=== PATIENT | female | born 1990 | race Caucasian/White ===

== ENCOUNTER 2016-09-06 10:04 | Observation (INO) | payer OTHER ==
[~2016-09-06 10:04] MED LIST: PREN1CAP30 PO; PREN29TA PO; PROM1SUP7 RECTAL; PROM25TA5 PO
[2016-09-06 11:25] LABS: BACTERIA, URINE RARE /hpf; BLOOD, URINE NEG (NEG); COMMENT (UR) CULT NOT INDICATED; CULTURE IF INDICATED CULT NOT INDICATED; GLUCOSE,URINE NEG (NEG); KETONE, URINE 150 mg/dL (NEG); MUCUS URINE FEW /lpf (OCC); NITRITE,URINE NEG (NEG); SQUAMOUS EPITHELIAL CELL URINE <1 /hpf (0-5); URINE COLOR YELLOW (YELLW/STRAW)
[2016-09-06] MEDS: LACTATED RINGER'S 1000 ML INJ 1,000 ML IV SCH ×2 (11:30→19:30)
[2016-09-06] MEDS ORDERED: PROCHLORPERAZINE INJ 10 MG/2 ML VIAL IM ONE (11:45)
[2016-09-06] MEDS ORDERED: ONDANSETRON HCL 4 MG/2 ML VIAL IV PUSH ONE (11:45)
[2016-09-06 12:21] LABS: HEMATOCRIT 39.7 % (35.0-46.0); MEAN CELL VOLUME 91.9 FL (80.0-100.0); MEAN CORPUSCULAR HEMOGLOBIN 31.9 PG (27.0-34.0); MEAN CORPUSCULAR HGB CONC 34.7 % (32.0-36.0); PLATELET COUNT 365 TH/MM3 (150-450); RED BLOOD COUNT 4.32 MIL/MM3 (4.00-5.30); REVIEW FLAG FINAL; WHITE BLOOD COUNT 13.3 TH/MM3 (4.0-11.0)
[2016-09-06 13:07] LABS: ALKALINE PHOSPHATASE 48 U/L (45-117); ALT (GPT) 28 U/L (10-53); ANION GAP 17 MEQ/L (5-15); AST (GOT) 14 U/L (15-37); BICARBONATE 19.2 MEQ/L (21.0-32.0); BLOOD UREA NITROGEN 5 MG/DL (7-18); CHLORIDE 96 MEQ/L (98-107); GLOMERULAR FILTRATION RATE 229 ML/MIN (>89); SODIUM (NA) 132 MEQ/L (136-145); TOTAL BILIRUBIN ADULT 1.8 MG/DL (0.2-1.0)
[2016-09-06 13:12] LABS: POTASSIUM 2.7 MEQ/L (3.5-5.1)
[2016-09-06] MEDS ORDERED: SODIUM CHLORIDE 0.9% FLUSH 5 ML FLUSH IVF PRN (13:30)
[2016-09-06] MEDS: NS + KCL 20 MEQ INJ 1,000 ML IV SCH ×2 (13:30→22:26)
--- NOTE | 2016-09-06 13:32 | HHI.HP ---
HPI Chief Complaint Nausea and vomiting abdominal pain, denies bleeding or ruptured membranes, Date Seen: Sep 06, 2016 Travel History International Travel<30 Days: No Contact w/Intl Traveler<30Days: No History of Present Illness HPI Patient is 27 week intrauterine followed [facility] has battled nausea and vomiting hyperemesis throughout her . He has been up here 4 times for nausea and vomiting each time receiving fluids and medications going home and continuing to vomit. She states that she's been unable to keep anything down today. She notes the baby is moving her heart rate tracing is reactive. No contractions. Para: 0 : 1 History Past Medical History Narrative Medical The patient has had hyperemesis gravidarum Social History Alcohol Use: No Tobacco Use: Yes Substance Abuse: No Allergies-Medications (Allergen,Severity, Reaction): Coded Allergies: No Known Allergies (Verified , 09/02/16) Home Meds Active Scripts Promethazine Supp (Phenergan Supp)25 Mg Supp25 Mg RECTAL Q6H PRN (NAUSEA OR VOMITING) #6 SUPP Ref 0 Prov:Wally Padilla II, MD 08/31/16 Promethazine (Phenergan)25 Mg Tab25 Mg PO Q6H PRN (Nausea/Vomiting) #30 TAB Ref 0 Prov:Wally Padilla II, MD 08/31/16 Without A W/Fe Fum-Fe (Provida Dha 16-16-1.25-110 mg)1 Cap Cap1 Tab PO DAILY #30 BOTTLE Ref 11 Prov:Steffanie Barnett 07/22/16 Reported Medications Vit-Iron Carbonyl ( Plus Iron 29-1 mg)1 Tab Tab1 Tab PO DAILY #30 TAB Ref 0 08/31/16 Review of Systems Gastrointestinal: Nausea, Vomiting, Abdominal Pain Neurologic: Weakness Physical Exam Narrative GENERAL: Well-nourished, well-developed patient. SKIN: Warm and dry. HEAD: Normocephalic and atraumatic. EYES: No scleral icterus. No injection or drainage. ENT: No nasal drainage noted. Mucous membranes pink. Airway patent. NECK: Supple, trachea midline. No JVD. CARDIOVASCULAR: Regular rate and rhythm without murmurs, gallops, or rubs. RESPIRATORY: Breath sounds equal bilaterally. No accessory muscle use. BREASTS: Bilateral exam showed no masses , no retractions, no nipple discharge. ABDOMEN/GI: Abdomen soft, non-tender, bowel sounds present, no rebound, no guarding Gravid to [28 wk-] weeks size Fundal Height: [26 cm-] GENITOURINARY: External Genitalia: intact and normal in appearance BUS glands: [-] Cervix- posterior] Dilatation: [Post-] Effacement: [-] Thick Station: [-High] Presentation: [-] Membranes: [intact ] Uterine Contractions: [none-] FHT's: Category: [-1] Baseline: [-133] Reactive: [yes-] Variability: [-] Decels: [none-] EXTREMITIES: No cyanosis or edema. BACK: Nontender without obvious deformity. No CVA tenderness. NEUROLOGICAL: Awake and alert. Motor and sensory grossly within normal limits. Five out of 5 muscle strength in all muscle groups. Normal speech. Data Data Orders Urinalysis - C+S If Indicated (09/06/16 11:08) Vital Signs (Adult) .ON ADMISSION (09/06/16 11:30) ^ Labor Status (09/06/16 11:30) Cbc No Diff, Includes Plts (09/06/16 11:30) Comprehensive Metabolic Panel (09/06/16 11:30) Lactated Ringer's 1000 Ml Inj (Lr 1000 M (09/06/16 11:30) Ondansetron Inj (Zofran Inj) (09/06/16 11:45) Prochlorperazine Inj (Compazine Inj) (09/06/16 11:45) Fentanyl Inj (Fentanyl Inj) (09/06/16 11:45) Place In Observation (09/06/16 ) Diet Npo (09/06/16 Lunch) Vital Signs (Adult) SAGAR.N0J-ESAFP AWAKE (09/06/16 13:16) ^ Heart SAGAR.QSHIFT (09/06/16 13:16) Activity Bed Rest With Brp (09/06/16 13:16) Sodium Chloride 0.9% Flush (Ns Flush) (09/06/16 21:00) Sodium Chloride 0.9% Flush (Ns Flush) (09/06/16 13:30) Ns + Kcl 20 Meq Inj (Ns + Kcl 20 Meq Inj (09/06/16 13:30) Ondansetron Inj (Zofran Inj) (09/06/16 18:00) Metoclopramide Inj (Reglan Inj) (09/06/16 13:30) Potassium Chloride (Kcl) (09/06/16 21:00) Ob (2e) Additional Admit Info (09/06/16 13:25) Labs Laboratory Tests Test 09/06/16 11:05 White Blood Count 13.3 Red Blood Count 4.32 Hemoglobin 13.8 Hematocrit 39.7 Mean Corpuscular Volume 91.9 Mean Corpuscular Hemoglobin 31.9 Mean Corpuscular Hemoglobin 34.7 Concent Red Cell Distribution Width 13.0 Platelet Count 365 Mean Platelet Volume 7.9 Urine Color YELLOW Urine Turbidity CLEAR Urine pH 6.0 Urine Specific [place] 1.027 Urine Protein 30 Urine Glucose (UA) NEG Urine Ketones 150 Urine Occult Blood NEG Urine Nitrite NEG Urine Bilirubin NEG Urine Urobilinogen 2.0 Urine Leukocyte Esterase TRACE Urine RBC 1 Urine WBC 3 Urine Squamous Epithelial <1 Cells Urine Bacteria RARE Urine Mucus FEW Microscopic Urinalysis Comment CULT NOT INDICATED Sodium Level 132 Potassium Level 2.7 Chloride Level 96 Carbon Dioxide Level 19.2 Anion Gap 17 Blood Urea Nitrogen 5 Creatinine 0.35 Estimat Glomerular Filtration 229 Rate Random Glucose 84 Calcium Level 9.1 Total Bilirubin 1.8 Aspartate Amino Transf 14 (AST/SGOT) Alanine Aminotransferase 28 (ALT/SGPT) Alkaline Phosphatase 48 Total Protein 7.4 Albumin 3.6 Assessment/Plan Assessment and Plan Mckenzie is a 26-year-old white female at 27 weeks gestation followed by [facility] subjective this presents with her persistent nausea vomiting unrelieved by outpatient management. The patient requests being admitted for further IV fluid medication and pain relief. Her on OB ED she is already received a liter fluid IV Zofran and Compazine and fentanyl however she still feels nauseous but has not thrown up on she's here her laboratory shows a low potassium at 2.7 low sodium 132. Plan to admit to observation for further IV fluid antibiotics and potassium replacement for hypokalemia. The baby of the discharge in the morning on oral antiemetics and KCL Wally Padilla II, MD Sep 06, 2016 13:32
[2016-09-06] MEDS ORDERED: MORPHINE SULFATE 4 MG/ML INJ IV PUSH PRN (13:45)
[2016-09-06] MEDS: METOCLOPRAMIDE HCL 10 MG/2 ML VIAL IM SCH ×2 (14:00→22:25)
[2016-09-06] MEDS ORDERED: PANTOPRAZOLE SODIUM 40 MG VIAL IV PUSH SCH (14:00)
[2016-09-06 15:12] LABS: AMPHETAMINE, URINE NEG (NEG); BARBITURATES, URINE NEG (NEG); COCAINE, URINE NEG (NEG)
[2016-09-06] MEDS: ONDANSETRON HCL 4 MG/2 ML VIAL IV PUSH SCH (18:00)
[2016-09-06] MEDS: POTASSIUM CHLORIDE 10 MEQ CONTROLLED RELEASE TAB PO SCH (21:26)
[2016-09-06] MEDS: SODIUM CHLORIDE 0.9% FLUSH 5 ML FLUSH IVF SCH (22:16)
[2016-09-07] MEDS: ONDANSETRON HCL 4 MG/2 ML VIAL IV PUSH SCH ×2 (00:15→06:03)
[2016-09-07] MEDS: LACTATED RINGER'S 1000 ML INJ 1,000 ML IV SCH (03:30)
[2016-09-07] MEDS: NS + KCL 20 MEQ INJ 1,000 ML IV SCH (06:02)
[2016-09-07] MEDS: METOCLOPRAMIDE HCL 10 MG/2 ML VIAL IM SCH (06:02)
--- NOTE | 2016-09-07 07:32 | PD.OB.ANTE ---
Subjective Diagnosis: (1) related nausea and vomiting, antepartum Diagnosis: Principal (2) 27 weeks gestation of Diagnosis: Principal Interval History No acute events overnight. Patient is AFVSS. Patient says she hasn't had any vomiting since admission, and "is feeling much better." She endorses nausea but states it is under control with antiemetics given in hospital. She denies vomiting, diarrhea, constipation, shortness of breath, abdominal pain, chest pain. No vaginal bleeding, contractions, leakage of fluid. Patient endorses that she plans to completely stop using marijuana (UDS positive for marijuana). Antepartum ROS: Reports: movement normal, Denies: New complaints, Loss of fluid, Vaginal bleeding, Contractions Objective Vital Signs Most recent vitals: 99.0F, pulse 78, respirations 16/min, BP 103/48. Lab & Micro Results Test 09/06/16 11:05 White Blood Count 13.3 TH/MM3 Red Blood Count 4.32 MIL/MM3 Hemoglobin 13.8 GM/DL Hematocrit 39.7 % Mean Corpuscular Volume 91.9 FL Mean Corpuscular Hemoglobin 31.9 PG Mean Corpuscular Hemoglobin 34.7 % Concent Red Cell Distribution Width 13.0 % Platelet Count 365 TH/MM3 Mean Platelet Volume 7.9 FL Urine Color YELLOW Urine Turbidity CLEAR Urine pH 6.0 Urine Specific [place] 1.027 Urine Protein 30 mg/dL Urine Glucose (UA) NEG mg/dL Urine Ketones 150 mg/dL Urine Occult Blood NEG Urine Nitrite NEG Urine Bilirubin NEG Urine Urobilinogen 2.0 MG/DL Urine Leukocyte Esterase TRACE Urine RBC 1 /hpf Urine WBC 3 /hpf Urine Squamous Epithelial <1 /hpf Cells Urine Bacteria RARE /hpf Urine Mucus FEW /lpf Microscopic Urinalysis Comment CULT NOT INDICATED Sodium Level 132 MEQ/L Potassium Level 2.7 MEQ/L Chloride Level 96 MEQ/L Carbon Dioxide Level 19.2 MEQ/L Anion Gap 17 MEQ/L Blood Urea Nitrogen 5 MG/DL Creatinine 0.35 MG/DL Estimat Glomerular Filtration 229 ML/MIN Rate Random Glucose 84 MG/DL Calcium Level 9.1 MG/DL Total Bilirubin 1.8 MG/DL Aspartate Amino Transf 14 U/L (AST/SGOT) Alanine Aminotransferase 28 U/L (ALT/SGPT) Alkaline Phosphatase 48 U/L Total Protein 7.4 GM/DL Albumin 3.6 GM/DL Urine Opiates Screen NEG Urine Barbiturates Screen NEG Urine Amphetamines Screen NEG Urine Benzodiazepines Screen NEG Urine Cocaine Screen NEG Urine Cannabinoids Screen POS Physical Exam GENERAL: Well-nourished, well-developed female sitting in bed in NAD. CARDIOVASCULAR: Regular rate and rhythm without murmurs, gallops, or rubs. RESPIRATORY: Breath sounds equal bilaterally. No accessory muscle use. ABDOMEN/GI: Abdomen soft, non-tender. Gravid to approximately 24 weeks. GENITOURINARY: deferred FHT's: Category: 1 Baseline: 150 Reactive: n Variability: mod Decels: none EXTREMITIES: No cyanosis or edema, non-tender, without signs of DVT. Assessment and Plan Problem List: (1) related nausea and vomiting, antepartum Status: Acute (2) 27 weeks gestation of Status: Acute Assessment and Plan 26-year-old female at 27 and 3/7 weeks gestation followed by [facility] who presents to the OB ED with intractable nausea and vomiting. She she was found to have significant hypokalemia documented at 2.7. She is status post PO repletion and IV fluid repletion of potassium, with CMP pending for this morning. For the nausea, patient has received Zofran and Reglan which has significantly improved her symptoms. Plan: -Monitor CMP this morning, replete K PO as needed -Discharge home with Reglan 10mg q8hr scheduled, Zofran 4mg q6hr PRN to control nausea symptoms -Continue routine care with [facility], with close follow-up to monitor symptoms and growth DW Dr. Wally Padilla MD and Dr. Healy, PGY2 Rosie Soler MD R1 Sep 07, 2016 07:32
[2016-09-07] MEDS ORDERED: ZOFR4TAB3 SL (08:06)
[2016-09-07] MEDS ORDERED: REGL10TA5 PO (08:06)
--- NOTE | 2016-09-07 08:07 | HHI.DCPOC ---
Discharge Care Plan Diagnosis: (1) related nausea and vomiting, antepartum (2) 27 weeks gestation of Your Health Problems Are: Nausea and/or vomiting Report Symptoms to Your Doctor -Temperate above 100.5 degrees -Redness, of incision or excessive or foul smelling drainage -Unusual pain or calf pain -Increased vaginal bleeding -Painful or difficulty urinating -Feelings of extreme sadness or anxiety after 2 weeks Goals to Promote Your Health * To prevent worsening of your condition and complications * To maintain your health at the optimal level Directions to Meet Your Goals Take your medications as prescribed Follow your dietary instruction Follow activity as directed Ensure plenty of rest for recovery Drink fluids for hydration Keep your appointments as scheduled Take your immunizations and boosters as scheduled If your symptoms worsen call your PCP, if no PCP go to Urgent Care Center or Emergency Room Smoking is Dangerous to Your Health. Avoid second hand smoke Call the 24-hour crisis hotline for domestic abuse at Rosie Soler MD R1 Sep 07, 2016 08:07
[2016-09-07] MEDS: POTASSIUM CHLORIDE 10 MEQ CONTROLLED RELEASE TAB PO SCH (08:28)
[2016-09-07] MEDS ORDERED: PROT40TA PO (08:47)
[2016-09-07] MEDS: SODIUM CHLORIDE 0.9% FLUSH 5 ML FLUSH IVF SCH (09:00)
[2016-09-07 09:27] LABS: ALKALINE PHOSPHATASE 40 U/L (45-117); ALT (GPT) 26 U/L (10-53); ANION GAP 12 MEQ/L (5-15); AST (GOT) 19 U/L (15-37); BICARBONATE 17.1 MEQ/L (21.0-32.0); CHLORIDE 107 MEQ/L (98-107); GLOMERULAR FILTRATION RATE 273 ML/MIN (>89); POTASSIUM 3.9 MEQ/L (3.5-5.1); SODIUM (NA) 136 MEQ/L (136-145); TOTAL BILIRUBIN ADULT 1.9 MG/DL (0.2-1.0)
[2016-09-07 09:28] LABS: BLOOD UREA NITROGEN 3 MG/DL (7-18)
--- NOTE | 2016-09-07 09:33 | PD.OB.ANTE ---
Subjective Diagnosis: (1) related nausea and vomiting, antepartum (2) 27 weeks gestation of Interval History pt feeling better today , K -3.9 , no N/V since admission , will D/C on po reglan, zofran ODT , protonix q d Objective Lab & Micro Results Test 09/06/16 09/07/16 11:05 08:00 White Blood Count 13.3 TH/MM3 Red Blood Count 4.32 MIL/MM3 Hemoglobin 13.8 GM/DL Hematocrit 39.7 % Mean Corpuscular Volume 91.9 FL Mean Corpuscular Hemoglobin 31.9 PG Mean Corpuscular Hemoglobin 34.7 % Concent Red Cell Distribution Width 13.0 % Platelet Count 365 TH/MM3 Mean Platelet Volume 7.9 FL Urine Color YELLOW Urine Turbidity CLEAR Urine pH 6.0 Urine Specific [place] 1.027 Urine Protein 30 mg/dL Urine Glucose (UA) NEG mg/dL Urine Ketones 150 mg/dL Urine Occult Blood NEG Urine Nitrite NEG Urine Bilirubin NEG Urine Urobilinogen 2.0 MG/DL Urine Leukocyte Esterase TRACE Urine RBC 1 /hpf Urine WBC 3 /hpf Urine Squamous Epithelial <1 /hpf Cells Urine Bacteria RARE /hpf Urine Mucus FEW /lpf Microscopic Urinalysis Comment CULT NOT INDICATED Sodium Level 132 MEQ/L 136 MEQ/L Potassium Level 2.7 MEQ/L 3.9 MEQ/L Chloride Level 96 MEQ/L 107 MEQ/L Carbon Dioxide Level 19.2 MEQ/L 17.1 MEQ/L Anion Gap 17 MEQ/L 12 MEQ/L Blood Urea Nitrogen 5 MG/DL 3 MG/DL Creatinine 0.35 MG/DL 0.30 MG/DL Estimat Glomerular Filtration 229 ML/MIN 273 ML/MIN Rate Random Glucose 84 MG/DL 71 MG/DL Calcium Level 9.1 MG/DL 8.1 MG/DL Total Bilirubin 1.8 MG/DL 1.9 MG/DL Aspartate Amino Transf 14 U/L 19 U/L (AST/SGOT) Alanine Aminotransferase 28 U/L 26 U/L (ALT/SGPT) Alkaline Phosphatase 48 U/L 40 U/L Total Protein 7.4 GM/DL 5.8 GM/DL Albumin 3.6 GM/DL 2.9 GM/DL Urine Opiates Screen NEG Urine Barbiturates Screen NEG Urine Amphetamines Screen NEG Urine Benzodiazepines Screen NEG Urine Cocaine Screen NEG Urine Cannabinoids Screen POS Physical Exam GENERAL: Well-nourished, well-developed patient. CARDIOVASCULAR: Regular rate and rhythm without murmurs, gallops, or rubs. RESPIRATORY: Breath sounds equal bilaterally. No accessory muscle use. ABDOMEN/GI: Abdomen soft, non-tender. Fundus: [-] GENITOURINARY: External Genitalia: intact and normal in appearance Cervix: [-] Dilatation: [-] Effacement: [-] Station: [-] Presentation: [-] Membranes: [-] Uterine Contractions: [-] FHT's: Category: [-] Baseline: [-] Reactive: [-] Variability: [-] Decels: [-] EXTREMITIES: No cyanosis or edema, non-tender, without signs of DVT. Assessment and Plan Problem List: (1) related nausea and vomiting, antepartum Status: Acute (2) 27 weeks gestation of Status: Acute Assessment and Plan 26-year-old female at 27 and 3/7 weeks gestation followed by [facility] who presents to the OB ED with intractable nausea and vomiting. She she was found to have significant hypokalemia documented at 2.7. She is status post PO repletion and IV fluid repletion of potassium, with CMP pending for this morning. For the nausea, patient has received Zofran and Reglan which has significantly improved her symptoms. Plan: -Monitor CMP this morning, replete K PO as needed -Discharge home with Reglan 10mg q8hr scheduled, Zofran 4mg q6hr PRN to control nausea symptoms -Continue routine care with [facility], with close follow-up to monitor symptoms and growth DW Dr. Wally Padilla MD and Dr. Healy, PGY2 Wally Padilla II, MD Sep 07, 2016 09:33
[2016-09-11 09:52] LABS: BATH SALTS (MDPV) UR NEG (NEG); ECSTASY (MDMA) UR NEG (NEG); HEROIN (6-ACETYLMORPHINE) UR NEG (NEG); K2 SPICE UR NEG (NEG); OBMETHADONE UR NEG (NEG); OXYCODONE (PERCODAN) NEG (NEG); PHENCYCLIDINE URINE NEG (NEG)
== END 2016-09-07 11:10 | disposition home or self-care (01) ==
LOC: HOBED 10:04 → H2EA 13:31
PROVIDERS: ADMIT Obstetrics & Gynecology Maternal & Fetal Medicine; ATTEND Obstetrics & Gynecology Maternal & Fetal Medicine
DX: O26.892 Other specified pregnancy related conditions, second trimester (principal); R10.9 Unspecified abdominal pain; Z3A.27 27 weeks gestation of pregnancy; O21.0 Mild hyperemesis gravidarum; Z72.0 Tobacco use; E87.6 Hypokalemia; F12.90 Cannabis use, unspecified, uncomplicated
CPT/HCPCS: 80053; 80307; 81001; 85027; 96361; 96372; 96374; 96375; 99284; C9113; G0378; G0481; J0780; J2405; J2765; J3010; J3480; J7120; 80352; 80354; 80356; 80358; 80359; 80371; 83789; 83992; G0480

== ENCOUNTER → 2016-10-01 | Outpatient (CLI) | payer OTHER ==
[~2016-10-01] MED LIST changes: -PREN1CAP30 PO; -PROM1SUP7 RECTAL; -PROM25TA5 PO; +PROT40TA PO; +REGL10TA5 PO; +ZOFR4TAB3 SL
== END ==
LOC: CLAB 10:34
PROVIDERS: ATTEND Nurse Practitioner Women's Health
DX: O36.0130 Maternal care for anti-D [Rh] antibodies, third trimester, not applicable or unspecified (principal)
CPT/HCPCS: 36415; 86850; 86900; 86901; 90384; 96372; J2790

== ENCOUNTER 2016-11-21 18:01 | Emergency (ER) | payer OTHER ==
[~2016-11-21 18:01] MED LIST changes: -PROT40TA PO; -REGL10TA5 PO; -ZOFR4TAB3 SL
--- NOTE | 2016-11-21 19:09 | PD ---
HPI Chief Complaint Swelling in her legs Date Seen: Nov 21, 2016 Travel History International Travel<30 Days: No Contact w/Intl Traveler<30Days: No Known Affected Area: No History of Present Illness HPI This patient is a 26-year-old white female at 38 weeks presents complaining of 3 days of swelling in the lower extremities bilaterally, she denies contractions bleeding leakage of fluid her baby is active heart rate tracing is reactive and she is not gill her blood pressures within normal limits, and she sees [facility] for [facility] Para: 0 : 1 History Past Medical History Medical History: Denies Significant Hx Social History Alcohol Use: No Tobacco Use: No Substance Abuse: No Allergies-Medications (Allergen,Severity, Reaction): Coded Allergies: No Known Allergies (Verified , 11/17/16) Home Meds Reported Medications Vit-Iron Carbonyl ( Plus Iron 29-1 mg)1 Tab Tab1 Tab PO DAILY #30 TAB Ref 0 08/31/16 Review of Systems General / Constitutional: No: Fever, Weight Gain, Chills, Other Eyes: No: Diploplia, Blurred Vision, Visual changes, Pain, Photophobia HENT: No: Headaches, Vertigo, Lightheadedness Cardiovascular: No: Irregular Rhythm, Chest Pain or Discomfort, Palpitations, Tachycardia, Syncope, Varicosities, Edema, Cyanosis Respiratory: No: Cough, Short of Breath, Other Gastrointestinal: No: Nausea, Vomiting, Diarrhea Genitourinary: No: Decreased Urinary Output, Oliguria Musculoskeletal: Edema, No: Limited ROM, Weakness, Cramping, Pain Skin: No Rash, No Itching, No Dryness, No Lumps, No Change in Pigmentation, No Change in Nails, No Alopecia, No Lesions Neurologic: No: Weakness, Dizziness, Syncope, Focal Abnormalities, Coordination Problem, Headache, Slurred Speech, Seizures Psychiatric: No: Depression, Suicidal Ideations, Homicidal Ideation Endocrine: No: Heat Intolerance, Cold Intolerance, Polydipsia, Polyuria, Other Physical Exam Narrative GENERAL: Well-nourished, well-developed patient. SKIN: Warm and dry. HEAD: Normocephalic and atraumatic. EYES: No scleral icterus. No injection or drainage. ENT: No nasal drainage noted. Mucous membranes pink. Airway patent. NECK: Supple, trachea midline. No JVD. CARDIOVASCULAR: Regular rate and rhythm without murmurs, gallops, or rubs. RESPIRATORY: Breath sounds equal bilaterally. No accessory muscle use. BREASTS: Bilateral exam showed no masses , no retractions, no nipple discharge. ABDOMEN/GI: Abdomen soft, non-tender, bowel sounds present, no rebound, no guarding Gravid to [38-] weeks size Fundal Height: [-38] GENITOURINARY: Uterine Contractions: [-none] FHT's: Category: [1-] Baseline: [133-] Reactive: [-yes] Variability: [mod-] Decels: [none-] EXTREMITIES: No cyanosis , 3+ pitting edema in legs and feet BACK: Nontender without obvious deformity. No CVA tenderness. NEUROLOGICAL: Awake and alert. Motor and sensory grossly within normal limits. Five out of 5 muscle strength in all muscle groups. Normal speech. Data Data Vital Signs Reviewed: Yes MDM Interpretation(s) This patient 26-year-old white female at 38 weeks followed by the [facility] who presents planning of swelling in her legs the last 3 days. 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 She tried to get off her feet for 1 day yesterday and didn't seem to help much and today she went to work and the swelling was right back worse than ever. However her blood pressures normal taken several times she is no history of high blood pressure or -induced hypertension. Her heart rate tracing is reactive there are no contractions Plan Plan to discharge the patient home to bedrest elevator legs up above her chest and heart staff her feet as much as possible over the next several days to she sees her OB provider on Wednesday, and she agrees to return here for worsening symptoms Diagnosis Diagnosis: Primary Impression: Edema during in third trimester Disposition: DISCHARGE HOME Condition: Stable Wally Padilla II, MD Nov 21, 2016 19:09
== END 2016-11-21 19:20 | disposition home or self-care (01) ==
LOC: HOBED 18:01
DX: O26.93 Pregnancy related conditions, unspecified, third trimester (principal); R60.0 Localized edema; Z3A.38 38 weeks gestation of pregnancy
CPT/HCPCS: 59025

== ENCOUNTER 2018-06-15 06:46 | Observation (INO) ==
[2018-06-15] MEDS ORDERED: Sod Chloride 0.9% Inj 1,000 ML IV.SIG ONE (07:04)
[2018-06-15] MEDS ORDERED: Morphine Sulfate Inj 2 MG/ML Vial IV.PUSH ONE ×2 (07:04→08:56)
[2018-06-15] MEDS ORDERED: Famotidine PF Inj 20 MG/2 ML Vial IV.PUSH ONE (07:04)
--- NOTE | 2018-06-15 07:11 | ED ---
HPI General Chief complaint: Nausea/Vomiting/Diarrhea Stated complaint: Vomiting Time Seen by Provider: 06/15/18 07:03 Source: patient Mode of arrival: ambulatory Limitations: no limitations History of Present Illness HPI Narrative: The patient is a 28-year-old female who presents to the emergency department for nausea, vomiting, and epigastric abdominal pain of 3 days duration. The patient has a 5-year history of similar symptoms, has had multiple workups including gastric emptying study and CT of the abdomen and pelvis which she states is negative. The patient was seen in the emergency department yesterday where she had laboratory evaluation revealing a mildly elevated white count per her report and a CT of the abdomen and pelvis which was negative. The patient was provided pain medications, antiemetics, and IV fluids with improvement of her symptoms. The patient was subsequently discharged home, however, returns with progressing symptoms. The patient does note a previous history of cholecystectomy and section. She is not currently followed by a patrol officer. The patient did have a few episodes of diarrhea yesterday which were loose, however, denies any diarrhea today. She denies any sick contacts at home. She denies any fever, chills, or sweats. She just finished her last menstrual cycle. She denies any dysuria, frequency, or urgency. Symptoms are moderate, there are no current alleviating or exacerbating factors. MD complaint: Reports nausea, vomiting and abdominal pain Onset (ago): day(s) Description of Vomiting: watery and bilious Description of Diarrhea: watery Associated Abdominal Pain: Yes Location of pain: Reports epigastric Radiation: diffuse Severity: moderate Severity scale (1-10): 5 Quality: Reports cramping and stabbing Pain Consistency: intermittent Relieving factors: none Exacerbating factors: none Context: Reports marijuana use Associated symptoms: Reports nausea/vomiting Related Data Previous Rx's Medication Instructions Recorded dicyclomine 20 mg PO TID PRN #20 tab 06/14/18 pantoprazole [Protonix] 40 mg PO DAILY #30 tab 06/14/18 Allergies Allergy/AdvReac Type Severity Reaction Status Date / Time No Known Allergies Allergy Unverified 06/15/18 06:48 Review of Systems ROS: all other systems reviewed are negative [facility] Social History Social History Substance History: No History of Abuse Smoking Status: Never smoker How Often Do You Have a Drink Containing Alcohol: Never Recent Travel in [facility] within the Last 8 Weeks: No Recent Out of Country Travel within the Last 8 Weeks: No Immunization History Tetanus Immunization: <5 Years Exam Narrative Exam Narrative: GENERAL: Awake, alert, pleasant 28-year-old female who appears her stated age and is dry heaving upon entering the room. SKIN: Focused skin assessment warm/dry. HEAD: Atraumatic. Normocephalic. EYES: Pupils equal and round. No scleral icterus. No injection or drainage. ENT: No nasal bleeding or discharge. Slightly dry mucous membranes. NECK: Trachea midline. No JVD. CARDIOVASCULAR: Regular rate and rhythm. No murmur appreciated. RESPIRATORY: No accessory muscle use. Clear to auscultation. Breath sounds equal bilaterally. GASTROINTESTINAL: Abdomen soft, epigastric tenderness but no guarding rigidity. Back: No CVA tenderness. MUSCULOSKELETAL: No obvious deformities. No clubbing. No cyanosis. No edema. NEUROLOGICAL: Awake and alert. No obvious cranial nerve deficits. Motor grossly within normal limits. Normal speech. PSYCHIATRIC: Appropriate mood and affect; insight and judgment normal. Course Initial Documented Vital Signs Temperature 97.8 F 06/15/18 06:48 Pulse Rate 65 06/15/18 06:48 Respiratory Rate 15 06/15/18 06:48 Blood Pressure 173/83 H 06/15/18 06:48 Pulse Oximetry 99 06/15/18 06:48 Last Documented Vital Signs Temperature 97.8 F 06/15/18 06:48 Pulse Rate 72 06/15/18 08:00 Respiratory Rate 19 06/15/18 08:13 Blood Pressure 139/77 06/15/18 08:00 Pulse Oximetry 100 06/15/18 08:00 Medical Decision Making [facility] Narrative Medical decision making narrative: IV was established, labs are drawn and sent, and the patient was placed on cardiac telemetry monitoring and continuous pulse oximetry monitoring. The patient had a CT of her abdomen and pelvis yesterday which was unremarkable, was noted to be status post cholecystectomy. The patient was administered Pepcid, morphine, Reglan, and 2 L of IV fluids. Bedside UA test was obtained. The patient's test was negative. Bilirubin is elevated, has been elevated in the past. White count is unremarkable. Potassium slightly low, was replaced intravenously. The patient continued to be monitored. She did have return of abdominal pain, therefore, was administered a second dose of pain medication. The patient was reevaluated, continued to have abdominal pain with nausea, therefore, will be a 23-hour observation as this is her third visit in 3 days for similar symptoms. The on-call medical service was paged for observation. Medical Screen Exam Complete: Yes Emergency Medical Condition: Yes Differential Diagnosis Differential Diagnosis: Differential diagnosis includes gastritis, peptic ulcer disease, gastroparesis, hyperemesis cannabis syndrome, pancreatitis, dehydration , electrolyte abnormality. Medical Records Medical records reviewed: Yes I reviewed the patient's medical records. I reviewed the patient's laboratory evaluation and CT of the abdomen and pelvis that was performed yesterday. Lab Data Result diagrams: 06/15/18 07:31 06/15/18 07:31 POC Results POC Urine Results Negative Lab Results 06/15/18 06/15/18 06/15/18 Range/Units 07:31 07:31 07:31 WBC 10.8 (4.0-11.0) th/mm3 RBC 4.33 (4.00-5.30) mil/mm3 Hgb 13.4 (11.6-15.3) gm/dL Hct 39.6 (35.0-46.0) % MCV 91.4 (80.0-100.0) fL MCH 31.0 (27.0-34.0) pg MCHC 33.9 (32.0-36.0) % RDW 13.6 (11.6-17.2) % Plt Count 305 (150-450) th/mm3 MPV 7.7 (7.0-11.0) fL Neut % (Auto) 78.4 H (16.0-70.0) % Lymph % (Auto) 17.2 (9.0-44.0) % Milam % (Auto) 3.8 (0.0-8.0) % Eos % (Auto) 0.1 (0.0-4.0) % Baso % (Auto) 0.5 (0.0-2.0) % Neut # (Auto) 8.4 H (1.8-7.7) th/mm3 Lymph # (Auto) 1.9 (1.0-4.8) th/mm3 Milam # (Auto) 0.4 (0.0-0.9) th/mm3 Eos # (Auto) 0.0 (0.0-0.4) th/mm3 Baso # (Auto) 0.1 (0.0-0.2) th/mm3 WBC Differential . Differential Comment Auto diff final Sodium 139 (136-145) meq/L Potassium 3.4 L (3.5-5.1) meq/L Chloride 106 (98-107) meq/L Carbon Dioxide 19.9 L (21.0-32.0) meq/L Anion Gap 13 (5-15) meq/L BUN 9 (7-18) mg/dL Creatinine 0.84 (0.50-1.00) mg/dL Estimated GFR 82 L (>89) mL/min Random Glucose 110 H (74-106) mg/dL Lactic Acid 1.9 (0.4-2.0) mmol/L Calcium 8.9 (8.5-10.1) mg/dL Total Bilirubin 2.2 H (0.2-1.0) mg/dL AST 15 (15-37) U/L ALT 21 (10-53) U/L Alkaline Phosphatase 48 (45-117) U/L Total Protein 7.6 D (6.4-8.2) g/dL Albumin 4.3 D (3.4-5.0) g/dL Lipase 61 L (73-393) U/L Discharge Plan Discharge Disposition Patient Disposition: 30 Still Patient Discharge Condition Condition: Stable Discharge Details Diagnosis: Intractable vomiting with nausea, Acute hypokalemia, Abdominal pain, acute, epigastric Physicians Team ED Provider: Chente Richard Primary Care Provider: Herminia Aragon, Rxs /Orders / Referrals /Forms Prescriptions: No Action dicyclomine 20 mg tablet 20 mg PO TID PRN (Reason: pain) Qty: 20 RF: 0 pantoprazole [Protonix] 40 mg tablet,delayed release (DR/EC) 40 mg PO DAILY Qty: 30 RF: 0 Discharge Interventions Interventions: Vital Signs Last Done: 06/15/18 08:00 Status ED Status: Admitted Observation Patient
[2018-06-15] MEDS ORDERED: Sod Chloride 0.9% Inj 1,000 ML IV.SIG SCH (07:15)
[2018-06-15 07:45] LABS: Baso # (Auto) 0.1 th/mm3 (0.0-0.2); Baso % (Auto) 0.5 % (0.0-2.0); Eos % (Auto) 0.1 % (0.0-4.0); Hematocrit 39.6 % (35.0-46.0); Hemoglobin 13.4 gm/dL (11.6-15.3); Lymph # (Auto) 1.9 th/mm3 (1.0-4.8); Lymph % (Auto) 17.2 % (9.0-44.0); Mean Corpuscular HGB Conc 33.9 % (32.0-36.0); Mean Corpuscular Volume 91.4 fL (80.0-100.0); Mean Platelet Volume 7.7 fL (7.0-11.0); Mono # (Auto) 0.4 th/mm3 (0.0-0.9); Mono % (Auto) 3.8 % (0.0-8.0); Neut # (Auto) 8.4 th/mm3 (1.8-7.7); Neut % (Auto) 78.4 % (16.0-70.0); Platelet Count 305 th/mm3 (150-450); Red Blood Count 4.33 mil/mm3 (4.00-5.30); Red Cell Distribution Width 13.6 % (11.6-17.2); White Blood Count 10.8 th/mm3 (4.0-11.0)
[2018-06-15] MEDS ORDERED: Morphine Inj 4 MG/ML Vial IV.PUSH ONE (07:49)
[2018-06-15 08:07] LABS: Alanine Aminotransferase 21 U/L (10-53); Albumin 4.3 g/dL (3.4-5.0); Anion Gap 13 meq/L (5-15); Aspartate Aminotransferase 15 U/L (15-37); Blood Urea Nitrogen 9 mg/dL (7-18); Calcium 8.9 mg/dL (8.5-10.1); Carbon Dioxide 19.9 meq/L (21.0-32.0); Chloride 106 meq/L (98-107); Glomerular Filtration Rate 82 mL/min (>89); Glucose,Random 110 mg/dL (74-106); Lipase 61 U/L (73-393); Potassium 3.4 meq/L (3.5-5.1); Sodium 139 meq/L (136-145)
[2018-06-15 08:10] LABS: Alkaline Phosphatase 48 U/L (45-117); Total Protein 7.6 g/dL (6.4-8.2)
[2018-06-15] MEDS ORDERED: Potassium Chlor 20 mEq Premix 20 MEQ/100 ML PIGGYBACK IV.SIG ONE (08:16)
[2018-06-15] MEDS ORDERED: Ibuprofen 600 MG Tablet PO ONE (10:25)
[2018-06-15] MEDS: KCL 20 mEq/D5W/NaCl 0.45% Inj 1,000 ML IV.CONT SCH ×2 (11:13→21:13)
--- NOTE | 2018-06-15 11:27 | P.HPFP ---
History of Present Illness Primary Care Physician: [facility] <Deric Fuentes K - 06/15/18 19:54> [facility] <YovaniMelitonLuis J - 06/15/18 11:27> Chief Complaint: Nausea, vomiting, and inability to tolerate p.o. <PaigeflorKimbersofiya Pemberton - 06/15/18 11:27> History of Present Illness: Patient is a 28-year-old female with a past medical history significant for frequent bouts of nausea, vomiting, and inability to tolerate p.o and a surgical history significant for cholecystectomy. She reports feeling in her usual state of health up until 3 days prior to admission. At that time she had sudden onset of nausea worsened with p.o. intake, bilious but nonbloody vomiting (at least 20 times since onset) and epigastric pain. She describes the pain as a twisting feeling that is a 10/10 at worst, 7/10 at present. She notes this pain typically stays in the epigastric area, however when it is increasingly severe and is difficult to determine its location. She has had mild headache, dizziness, lightheadedness, which she attributes to dehydration. She does not have any home medications and has found no alleviating factors. She tries smoking marijuana for relief, which does not help. She not not typically smoke MJ, only with her nausea. Yesterday she had diarrhea concurrent with her vomiting. She has had episodes similar to this 1 in the past. She states that they typically occur when she is on her period or shortly thereafter, however that is not always the case. Last time she was admitted to the hospital for this was during her previous , greater than 1 year ago. This is her first episode since that time. She has seen a cut off machine helper in the past for this , without any definitive diagnosis. She does report a prior endoscopy that showed H. pylori, but she is unaware of any other findings. She was seen in the emergency department yesterday for the same problem. At that time she had leukocytosis, a CT of the abdomen and pelvis which showed no acute pathology, antiemetics, and fluids. Her symptoms improved with fluids and medication, she returned home and slept in the night, her symptoms returned in the morning. Today in the ED her symptoms had mild improvement with 2 L of normal saline, IV Zofran, IV Reglan, and IV morphine She denies fever, chills, sweats, chest pain, palpitations <YovaniLuis Niecy Jenise 06/15/18 17:00> - Diagnosis (1) Intractable vomiting with nausea (2) Acute hypokalemia (3) Abdominal pain, acute, epigastric (4) Hyperbilirubinemia <Deric Fuentes Jenise 06/15/18 19:54> (1) Intractable vomiting with nausea (2) Acute hypokalemia (3) Abdominal pain, acute, epigastric (4) Hyperbilirubinemia <RylieLuis canseco Niecy 06/15/18 16:59> Review of Systems All other systems reviewed negative except as stated in HPI <Luis Pina 06/15/18 11:27> PMFSH - History History Provided By: Patient <RylieharleenLuis Niecy 06/15/18 11:27> - Medical / Surgical Hx Neg / Unobtainable Medical Problems Denied: Yes <Luis Pina 06/15/18 11:27> - Medical History Medical History: Medical History (Last Reviewed 06/15/18 @ 06:57 by Jordyn Segura, NERY) Cholecystectomy planned <ShaanDeric garcia 06/15/18 19:54> Medical History (Last Reviewed 06/15/18 @ 06:57 by Jordyn Segura, RN) Cholecystectomy planned <RylieLuis canseco 06/15/18 11:27> - Surgical History Surgical History: Surgical History (Last Reviewed 06/15/18 @ 06:57 by Jordyn Segura, RN) Previous section <ShaanDeric garica 06/15/18 19:54> Surgical History (Last Reviewed 06/15/18 @ 06:57 by Jordyn Segura, RN) Previous section <Luis Pina 06/15/18 11:27> - Tobacco History Smoking Status: Never smoker <Luis Pina 06/15/18 11:27> - Alcohol History How Often Do You Have a Drink Containing Alcohol: Never <Lusi Pina 06/15/18 11:27> - Substance Use History Substance History: No History of Abuse <Luis Pina 06/15/18 11:27> - Travel History Recent Travel in the [place] Within the Last 8 Weeks: No <Luis Pina 06/15/18 11:27> Recent Travel Out of the Country Within the Last 8 Weeks: No <Luis Pina 06/15/18 11:27> - Immunization History Tetanus Immunization: <5 Years <Luis Pina 06/15/18 11:27> Medications and Allergies Allergies Allergy/AdvReac Type Severity Reaction Status Date / Time No Known Allergies Allergy Unverified 06/15/18 06:48 <Deric Fuentes 06/15/18 19:54> Active Medications: Active Medications Sodium Chloride (Ns Inj) 1,000 mls @ 0 mls/hr IV.SIG BOLUS MACK Last Infusion: 06/15/18 09:10 Dose: Infused Potassium Chloride/Dextrose/Sod Cl (D5w/1/2ns + Kcl 20 Meq Inj) 1,000 mls @ 100 mls/hr IV.CONT .Q10H MACK Last Admin: 06/15/18 11:13 Dose: 100 mls/hr Ketorolac Tromethamine (Toradol Inj) 15 mg IV.PUSH Q6H PRN PRN Reason: SEE DOSE INSTRUCTIONS Stop: 06/20/18 10:41 Last Admin: 06/15/18 18:15 Dose: 15 mg Metoclopramide HCl (Reglan Inj) 5 mg IV.PUSH Q6HR PRN; Protocol PRN Reason: NAUSEA OR VOMITING Last Admin: 06/15/18 14:54 Dose: 5 mg Morphine Sulfate (Morphine Inj) 2 mg IV.PUSH Q4H PRN PRN Reason: SEE DOSE INSTRUCTIONS Last Admin: 06/15/18 14:11 Dose: 2 mg Ondansetron HCl (Zofran Inj) 4 mg IV.PUSH Q6H PRN PRN Reason: NAUSEA Last Admin: 06/15/18 11:13 Dose: 4 mg Sodium Chloride (Ns Flush) 2 ml IV.FLUSH PRN PRN PRN Reason: FLUSH AFTER USING IV ACCESS Last Admin: 06/15/18 07:16 Dose: 2 ml <Deric Fuentes 06/15/18 19:54> Active Medications Sodium Chloride (Ns Inj) 1,000 mls @ 0 mls/hr IV.SIG BOLUS MACK Last Infusion: 06/15/18 09:10 Dose: Infused Potassium Chloride/Dextrose/Sod Cl (D5w/1/2ns + Kcl 20 Meq Inj) 1,000 mls @ 100 mls/hr IV.CONT .Q10H MACK Ketorolac Tromethamine (Toradol Inj) 15 mg IV.PUSH Q6H PRN PRN Reason: SEE DOSE INSTRUCTIONS Metoclopramide HCl (Reglan Inj) 5 mg IV.PUSH Q6HR PRN; Protocol PRN Reason: NAUSEA OR VOMITING Morphine Sulfate (Morphine Inj) 2 mg IV.PUSH Q4H PRN PRN Reason: SEE DOSE INSTRUCTIONS Ondansetron HCl (Zofran Inj) 4 mg IV.PUSH Q6H PRN PRN Reason: NAUSEA Sodium Chloride (Ns Flush) 2 ml IV.FLUSH PRN PRN PRN Reason: FLUSH AFTER USING IV ACCESS Last Admin: 06/15/18 07:16 Dose: 2 ml <Luis Pina - 06/15/18 11:27> Exam Vital signs: Vital Signs 06/15/18 06:48 06/15/18 08:00 06/15/18 08:13 Temperature 97.8 F Pulse Rate 65 72 Respiratory Rate 15 19 19 Blood Pressure 173/83 H 139/77 Pulse Oximetry 99 100 06/15/18 09:15 06/15/18 10:39 06/15/18 10:50 Temperature 98.7 F Pulse Rate 68 69 Respiratory Rate 18 18 16 Blood Pressure 133/75 138/79 Pulse Oximetry 99 99 06/15/18 11:31 06/15/18 13:34 06/15/18 16:00 Temperature 98.7 F 98.7 F Pulse Rate 63 57 L 59 L Respiratory Rate 16 16 Blood Pressure 142/91 H 146/99 H Pulse Oximetry 100 98 Intake & Output 06/15/18 06/15/18 06/16/18 06:59 18:59 06:59 Intake Total 2340 / 2340 Balance 2340 / 2340 Weight 72.575 kg Intake: IV 2100 / 2100 KCl 20 mEq Premix Inj 20 meq In 100 / 100 100 ml @ 50 mls/hr IV.SIG ONCE ONE Rx#:[id number] NS Inj 1,000 ML @ Wide Open IV. 1999 SIG BOLUS MACK Rx#:[id number] Oral 240 / 240 Other: Date of Last Bowel Movement 06/14/18 <Deric Fuentes - 06/15/18 19:54> Vital Signs 06/15/18 06:48 06/15/18 08:00 06/15/18 08:13 Temperature 97.8 F Pulse Rate 65 72 Respiratory Rate 15 19 19 Blood Pressure 173/83 H 139/77 Pulse Oximetry 99 100 06/15/18 09:15 06/15/18 10:39 Temperature Pulse Rate 68 Respiratory Rate 18 18 Blood Pressure 133/75 Pulse Oximetry 99 Intake & Output 06/14/18 06/15/18 06/15/18 18:59 06:59 18:59 Intake Total 1999 Balance 1999 Weight 72.575 kg Intake: IV 1999 NS Inj 1,000 ML @ Wide Open IV. 1999 SIG BOLUS MACK Rx#:[id number] <Luis Pina - 06/15/18 11:27> Narrative: General: Well-developed, alert, and in no acute distress. Appears stated age HEENT: Atraumatic, PERRL, non-icteric sclera and no conjunctival injection, moist mucous membranes Neck: Supple, non-tender without masses or lymphadenopathy, trachea midline Cardiac: Regular rate and rhythm without murmurs or gallops Pulmonary: Non-labored breathing. Lungs clear to auscultation bilaterally with good air movement Abdomen: Normal bowel sounds, soft, moderate tenderness to palpation of the epigastric area without rebound or guarding. Extremities: No edema, 2+ pedal pulses, capillary refill less than 2 seconds <Luis Pina - 06/15/18 16:58> Results - Labs Result diagrams: 06/15/18 07:31 06/15/18 07:31 <Deric Fuentes - 06/15/18 19:54> Abnormal lab results 06/15/18 06/15/18 Range/Units 07:31 07:31 Neut % (Auto) 78.4 H (16.0-70.0) % Neut # (Auto) 8.4 H (1.8-7.7) th/mm3 Potassium 3.4 L (3.5-5.1) meq/L Carbon Dioxide 19.9 L (21.0-32.0) meq/L Estimated GFR 82 L (>89) mL/min Random Glucose 110 H (74-106) mg/dL Total Bilirubin 2.2 H (0.2-1.0) mg/dL Lipase 61 L (73-393) U/L Short CBC 06/15/18 Range/Units 07:31 WBC 10.8 (4.0-11.0) th/mm3 Hgb 13.4 (11.6-15.3) gm/dL Hct 39.6 (35.0-46.0) % Plt Count 305 (150-450) th/mm3 [facility] 06/15/18 07:31 Sodium 139 Potassium 3.4 L Chloride 106 Carbon Dioxide 19.9 L BUN 9 Creatinine 0.84 Calcium 8.9 Liver Function 06/15/18 Range/Units 07:31 Total Bilirubin 2.2 H (0.2-1.0) mg/dL AST 15 (15-37) U/L ALT 21 (10-53) U/L Alkaline Phosphatase 48 (45-117) U/L Albumin 4.3 D (3.4-5.0) g/dL <Deric Fuentes - 06/15/18 19:54> Abnormal lab results 06/15/18 06/15/18 Range/Units 07:31 07:31 Neut % (Auto) 78.4 H (16.0-70.0) % Neut # (Auto) 8.4 H (1.8-7.7) th/mm3 Potassium 3.4 L (3.5-5.1) meq/L Carbon Dioxide 19.9 L (21.0-32.0) meq/L Estimated GFR 82 L (>89) mL/min Random Glucose 110 H (74-106) mg/dL Total Bilirubin 2.2 H (0.2-1.0) mg/dL Lipase 61 L (73-393) U/L Short CBC 06/15/18 Range/Units 07:31 WBC 10.8 (4.0-11.0) th/mm3 Hgb 13.4 (11.6-15.3) gm/dL Hct 39.6 (35.0-46.0) % Plt Count 305 (150-450) th/mm3 [facility] 06/15/18 07:31 Sodium 139 Potassium 3.4 L Chloride 106 Carbon Dioxide 19.9 L BUN 9 Creatinine 0.84 Calcium 8.9 Liver Function 06/15/18 Range/Units 07:31 Total Bilirubin 2.2 H (0.2-1.0) mg/dL AST 15 (15-37) U/L ALT 21 (10-53) U/L Alkaline Phosphatase 48 (45-117) U/L Albumin 4.3 D (3.4-5.0) g/dL <Luis Pina - 06/15/18 11:27> Caprini VTE Risk Assessment Caprini VTE Risk Assessment: No/Low Risk (score <= 1) <Luis Pina - 06/15/18 11:27> Caprini Risk Assessment Model: Point Value = 1 Point Value = 2 Point Value = 3 Point Value = 5 Age 41-60 Minor surgery BMI > 25 kg/m2 Swollen legs Varicose veins or History of unexplained or recurrent spontaneous Oral contraceptives or hormone replacement Sepsis (< 1 month) Serious lung disease, including pneumonia (< 1 month) Abnormal pulmonary function Acute myocardial infarction Congestive heart failure (< 1 month) History of inflammatory bowel disease Medical patient at bed rest Age 61-74 Arthroscopic surgery Major open surgery (> 45 min) Laparoscopic surgery (> 45 min) Malignancy Confined to bed (> 72 hours) Immobilizing plaster cast Central venous access Age >= 75 History of VTE Family history of VTE Factor V Leiden Prothrombin 50214D Lupus anticoagulant Anticardiolipin antibodies Elevated serum homocysteine Heparin-induced thrombocytopenia Other congenital or acquired thrombophilia Stroke (< 1 month) Elective arthroplasty Hip, pelvis, or leg fracture Acute spinal cord injury (< 1 month) <Deric Fuentes - 06/15/18 19:54> Point Value = 1 Point Value = 2 Point Value = 3 Point Value = 5 Age 41-60 Minor surgery BMI > 25 kg/m2 Swollen legs Varicose veins or History of unexplained or recurrent spontaneous Oral contraceptives or hormone replacement Sepsis (< 1 month) Serious lung disease, including pneumonia (< 1 month) Abnormal pulmonary function Acute myocardial infarction Congestive heart failure (< 1 month) History of inflammatory bowel disease Medical patient at bed rest Age 61-74 Arthroscopic surgery Major open surgery (> 45 min) Laparoscopic surgery (> 45 min) Malignancy Confined to bed (> 72 hours) Immobilizing plaster cast Central venous access Age >= 75 History of VTE Family history of VTE Factor V Leiden Prothrombin 16005M Lupus anticoagulant Anticardiolipin antibodies Elevated serum homocysteine Heparin-induced thrombocytopenia Other congenital or acquired thrombophilia Stroke (< 1 month) Elective arthroplasty Hip, pelvis, or leg fracture Acute spinal cord injury (< 1 month) <Luis Pina J - 06/15/18 11:27> Prophylaxis Regimen: Total Risk Factor Score Risk Level Prophylaxis Regimen 0-1 Low Early ambulation 2 Moderate Order ONE of the following: *Sequential Compression Device (SCD) *Heparin 5000 units SQ BID 3-4 Higher Order ONE of the following medications: *Heparin 5000 units SQ TID *Enoxaparin/Lovenox 40 mg SQ daily (WT < 150 kg, CrCl > 30 mL/min) *Enoxaparin/Lovenox 30 mg SQ daily (WT < 150 kg, CrCl > 10-29 mL/min) *Enoxaparin/Lovenox 30 mg SQ BID (WT < 150 kg, CrCl > 30 mL/min) AND/OR *Sequential Compression Device (SCD) 5 or more Highest Order ONE of the following medications: *Heparin 5000 units SQ TID (Preferred with Epidurals) *Enoxaparin/Lovenox 40 mg SQ daily (WT < 150 kg, CrCl > 30 mL/min) *Enoxaparin/Lovenox 30 mg SQ daily (WT < 150 kg, CrCl > 10-29 mL/min) *Enoxaparin/Lovenox 30 mg SQ BID (WT < 150 kg, CrCl > 30 mL/min) AND *Sequential Compression Device (SCD) <Deric Fuentes K - 06/15/18 19:54> Total Risk Factor Score Risk Level Prophylaxis Regimen 0-1 Low Early ambulation 2 Moderate Order ONE of the following: *Sequential Compression Device (SCD) *Heparin 5000 units SQ BID 3-4 Higher Order ONE of the following medications: *Heparin 5000 units SQ TID *Enoxaparin/Lovenox 40 mg SQ daily (WT < 150 kg, CrCl > 30 mL/min) *Enoxaparin/Lovenox 30 mg SQ daily (WT < 150 kg, CrCl > 10-29 mL/min) *Enoxaparin/Lovenox 30 mg SQ BID (WT < 150 kg, CrCl > 30 mL/min) AND/OR *Sequential Compression Device (SCD) 5 or more Highest Order ONE of the following medications: *Heparin 5000 units SQ TID (Preferred with Epidurals) *Enoxaparin/Lovenox 40 mg SQ daily (WT < 150 kg, CrCl > 30 mL/min) *Enoxaparin/Lovenox 30 mg SQ daily (WT < 150 kg, CrCl > 10-29 mL/min) *Enoxaparin/Lovenox 30 mg SQ BID (WT < 150 kg, CrCl > 30 mL/min) AND *Sequential Compression Device (SCD) <Luis Pina J - 06/15/18 11:27> Assessment and Plan - Assessment (1) Intractable vomiting with nausea Code(s): R11.2 - Nausea with vomiting, unspecified Status: Acute (2) Acute hypokalemia Code(s): E87.6 - Hypokalemia Status: Acute (3) Abdominal pain, acute, epigastric Code(s): R10.13 - Epigastric pain Status: Acute (4) Hyperbilirubinemia Code(s): E80.6 - Other disorders of bilirubin metabolism Status: Acute <Deric Fuentes Donnie - 06/15/18 19:54> (1) Intractable vomiting with nausea Code(s): R11.2 - Nausea with vomiting, unspecified Status: Acute (2) Acute hypokalemia Code(s): E87.6 - Hypokalemia Status: Acute (3) Abdominal pain, acute, epigastric Code(s): R10.13 - Epigastric pain Status: Acute (4) Hyperbilirubinemia Code(s): E80.6 - Other disorders of bilirubin metabolism Status: Acute <Luis Pina - 06/15/18 16:59> - Assessment and Plan Intractable nausea and vomiting/abdominal pain -3-day history of intractable nausea and vomiting, she has had this issue greater than 10 times in her lifetime with a a couple of hospital admissions -Some improvement with IV morphine and Zofran/Reglan -Morphine 2 mg IV every 4 hours as needed pain 6/10 -Toradol 15 mg IV every 6 hours as needed pain 3/10 -Continue zofran and reglan PRN N/V (ECG to assess QTc) -D5 1/2 NS + 20 mEq KCL / L @ 100cc/hr -Sips and ice chips for diet, advance slowly as tolerated Hypokalemia -Likely secondary to emesis -Potassium of 3.4 today. Given 20 mEq of potassium IV. -Potassium in fluids as above Hyperbilirubinemia -Not significantly different from her previous labs. -Liver enzymes and function normal -DDX includes hemolytic anemia and genetic disorders of bilirubin metabolism Fluids: 100cc/hr as above Electrolytes: monitor and replete as needed Nutrition: sips and ice chips for diet, advance slowly as tolerated GI prophylaxis: not indicated VTE prophylaxis: early ambulation <Luis Pina - 06/15/18 16:58> - Attending Attestation The exam, history, and the medical decision-making described in the above note were completed with the assistance of the resident physician. I reviewed and agree with the findings presented. I attest that I had a [id number] encounter with the patient on the same day, and personally performed and documented my assessment and findings in the medical record. Discussed with patient and resident, reviewed and agree with histories above. General: Well-developed, alert, and in no acute distress. Appears stated age HEENT: Atraumatic, PERRL, non-icteric sclera and no conjunctival injection, moist mucous membranes Neck: Supple, non-tender without masses or lymphadenopathy, trachea midline Cardiac: Regular rate and rhythm without murmurs or gallops Pulmonary: Non-labored breathing. Lungs clear to auscultation bilaterally with good air movement Abdomen: Normal bowel sounds, soft, moderate tenderness to palpation of the epigastric area without rebound or guarding. Extremities: No edema, 2+ pedal pulses, capillary refill less than 2 seconds Cyclic vomiting previous GES negative, CT A/P this week negative. EGD 2013 showing gastritis, negative h pylori, already had cholecystectomy and no CBD dilation on CT Cont to give fluids and anti-emetics, this usually works for her as seem to be somewhat related to menstrual cycle, she says she is open to exploring hormonal contraceptives Hypokalemia -2/2 above, replace in IVF, and extra PRN Hyperbilirubinemia/lipase - likely 2/2 CVS - possible gilbert's <Deric Fuentes - 06/15/18 19:54> <Luis Pina J - Last Filed: 06/15/18 16:59> (1) Intractable vomiting with nausea Qualifiers: Vomiting type: unspecified Qualified Code(s): R11.2 - Nausea with vomiting, unspecified <Deric Fuentes - Last Filed: 06/15/18 19:54> (1) Intractable vomiting with nausea Qualifiers: Vomiting type: unspecified Qualified Code(s): R11.2 - Nausea with vomiting, unspecified <Luis Pina J - Last Filed: 06/15/18 16:59> (1) Intractable vomiting with nausea Qualifiers: Vomiting type: unspecified Qualified Code(s): R11.2 - Nausea with vomiting, unspecified <Deric Fuentes - Last Filed: 06/15/18 19:54> (1) Intractable vomiting with nausea Qualifiers: Vomiting type: unspecified Qualified Code(s): R11.2 - Nausea with vomiting, unspecified
[2018-06-15] MEDS: Ketorolac Inj 30 MG/ML (IVP) Vial IV.PUSH PRN ×2 (11:41→18:15)
[2018-06-15] MEDS: Morphine Sulfate Inj 2 MG/ML Vial IV.PUSH PRN ×2 (14:11→21:12)
--- NOTE | 2018-06-15 20:02 | ECG ---
Date Performed: 06/15/2018 Time Performed: 17:09:38 PTAGE: 28 years EKG: SINUS BRADYCARDIA SEPTAL MYOCARDIAL INFARCTION ABNORMAL ECG PREVIOUS TRACING : 06/15/2018 17.00, image not available. DOCTOR: Antelmo Montiel Interpretating Date/Time 06/15/2018 20:00:51
[2018-06-15] MEDS: Acetaminophen Inj 650 MG/65 ML VIAL IV.SIG SCH (23:04)
[2018-06-16] MEDS: Morphine Sulfate Inj 2 MG/ML Vial IV.PUSH PRN ×4 (02:05→12:37)
[2018-06-16] MEDS: Acetaminophen Inj 650 MG/65 ML VIAL IV.SIG SCH (04:03)
[2018-06-16 07:33] LABS: Baso % (Auto) 0.3 % (0.0-2.0); Hematocrit 39.6 % (35.0-46.0); Hemoglobin 13.7 gm/dL (11.6-15.3); Lymph # (Auto) 1.5 th/mm3 (1.0-4.8); Lymph % (Auto) 19.1 % (9.0-44.0); Mean Corpuscular HGB Conc 34.6 % (32.0-36.0); Mean Corpuscular Hemoglobin 31.2 pg (27.0-34.0); Mean Platelet Volume 8.2 fL (7.0-11.0); Mono # (Auto) 0.3 th/mm3 (0.0-0.9); Mono % (Auto) 4.2 % (0.0-8.0); Neut # (Auto) 5.8 th/mm3 (1.8-7.7); Neut % (Auto) 76.4 % (16.0-70.0); Platelet Count 325 th/mm3 (150-450); Red Cell Distribution Width 13.5 % (11.6-17.2); White Blood Count 7.7 th/mm3 (4.0-11.0)
[2018-06-16 08:04] LABS: Anion Gap 9 meq/L (5-15); Blood Urea Nitrogen 3 mg/dL (7-18); Calcium 9.1 mg/dL (8.5-10.1); Carbon Dioxide 23.2 meq/L (21.0-32.0); Chloride 105 meq/L (98-107); Glomerular Filtration Rate Greater Than 89 mL/min (>89); Glucose,Random 122 mg/dL (74-106); Potassium 3.5 meq/L (3.5-5.1); Sodium 137 meq/L (136-145)
[2018-06-16] MEDS: KCL 20 mEq/D5W/NaCl 0.45% Inj 1,000 ML IV.CONT SCH ×3 (08:15→17:57)
[2018-06-16] MEDS ORDERED: Pantoprazole Inj 40 MG Vial IV.PUSH ONE (10:15)
--- NOTE | 2018-06-16 10:24 | P.PNFP ---
Subjective Interval history: Patient states that overnight she was switched to IV Tylenol for pain. She reports that it made her pain much worse. She had 2 episodes of dry heaving this morning. She states that the nausea medication is helping her., However, she still has epigastric abdominal pain. Patient was only able to tolerate popsicle last night. She did have a little bit of chicken broth, but reports it was too salty. Discussed with patient about trying a full liquid diet this morning and then progressing her diet as tolerated. She denies chest pain, fevers, shortness of breath. <Lisseth Caballero T - 06/16/18 11:37> Results - Labs Result diagrams: 06/16/18 06:45 06/16/18 06:45 <Deric Fuentes - 06/16/18 12:28> Abnormal lab results 06/16/18 06/16/18 Range/Units 06:45 06:45 Neut % (Auto) 76.4 H (16.0-70.0) % BUN 3 L (7-18) mg/dL Random Glucose 122 H (74-106) mg/dL Short CBC 06/16/18 Range/Units 06:45 WBC 7.7 (4.0-11.0) th/mm3 Hgb 13.7 (11.6-15.3) gm/dL Hct 39.6 (35.0-46.0) % Plt Count 325 (150-450) th/mm3 [facility] 06/16/18 06:45 Sodium 137 Potassium 3.5 Chloride 105 Carbon Dioxide 23.2 BUN 3 L Creatinine 0.76 Calcium 9.1 <Deric Fuentes - 06/16/18 12:28> Abnormal lab results 06/16/18 06/16/18 Range/Units 06:45 06:45 Neut % (Auto) 76.4 H (16.0-70.0) % BUN 3 L (7-18) mg/dL Random Glucose 122 H (74-106) mg/dL Short CBC 06/16/18 Range/Units 06:45 WBC 7.7 (4.0-11.0) th/mm3 Hgb 13.7 (11.6-15.3) gm/dL Hct 39.6 (35.0-46.0) % Plt Count 325 (150-450) th/mm3 [facility] 06/16/18 06:45 Sodium 137 Potassium 3.5 Chloride 105 Carbon Dioxide 23.2 BUN 3 L Creatinine 0.76 Calcium 9.1 <FedericoLisseth Rosa T - 06/16/18 10:24> Physical Exam Vital signs: Vital Signs 06/15/18 13:34 06/15/18 16:00 06/15/18 20:00 Temperature 98.7 F 98.1 F Pulse Rate 57 L 59 L 65 Respiratory Rate 16 19 Blood Pressure 146/99 H 130/83 Pulse Oximetry 98 98 06/15/18 21:57 06/15/18 23:23 06/15/18 23:29 Temperature 98.2 F Pulse Rate 60 Respiratory Rate 15 18 Blood Pressure 130/71 Pulse Oximetry 98 100 06/15/18 23:30 06/16/18 04:00 06/16/18 07:54 Temperature 98.5 F 98.5 F Pulse Rate 82 75 Respiratory Rate 19 20 Blood Pressure 143/73 H 134/93 H Pulse Oximetry 98 98 98 06/16/18 08:00 06/16/18 12:03 Temperature 98.5 F Pulse Rate 80 Respiratory Rate 20 20 Blood Pressure 121/74 Pulse Oximetry 98 Intake & Output 06/15/18 06/16/18 06/16/18 18:59 06:59 18:59 Intake Total 2340 / 2340 1015 / 1015 1000 / 1000 Balance 2340 / 2340 1015 / 1015 1000 / 1000 Intake: IV 2100 / 2100 1015 / 1015 1000 / 1000 D5W/1/2NS + KCL 20 mEq Inj 1, 950 / 950 1000 / 1000 000 ML @ 100 mls/hr IV.CONT . Q10H [facility] Rx#:[id number] Ofirmev Inj 650 mg In 65 ml @ 65 / 65 400 mls/hr IV.SIG Q6H [facility] Rx#: [id number] KCl 20 mEq Premix Inj 20 meq In 100 / 100 100 ml @ 50 mls/hr IV.SIG ONCE ONE Rx#:[id number] NS Inj 1,000 ML @ Wide Open IV. 1999 SIG BOLUS [facility] Rx#:[id number] Oral 240 / 240 Other: Date of Last Bowel Movement 06/14/18 06/14/18 06/14/18 <Deric Fuentes 06/16/18 12:28> Vital Signs 06/15/18 10:39 06/15/18 10:50 06/15/18 11:31 Temperature 98.7 F 98.7 F Pulse Rate 68 69 63 Respiratory Rate 18 16 16 Blood Pressure 133/75 138/79 142/91 H Pulse Oximetry 99 99 100 06/15/18 13:34 06/15/18 16:00 06/15/18 20:00 Temperature 98.7 F 98.1 F Pulse Rate 57 L 59 L 65 Respiratory Rate 16 19 Blood Pressure 146/99 H 130/83 Pulse Oximetry 98 98 06/15/18 21:57 06/15/18 23:23 06/15/18 23:29 Temperature 98.2 F Pulse Rate 60 Respiratory Rate 15 18 Blood Pressure 130/71 Pulse Oximetry 98 100 06/15/18 23:30 06/16/18 04:00 06/16/18 07:54 Temperature 98.5 F 98.5 F Pulse Rate 82 75 Respiratory Rate 19 20 Blood Pressure 143/73 H 134/93 H Pulse Oximetry 98 98 98 06/16/18 08:00 Temperature Pulse Rate Respiratory Rate 20 Blood Pressure Pulse Oximetry Intake & Output 06/15/18 06/16/18 06/16/18 18:59 06:59 18:59 Intake Total 2340 / 2340 1015 / 1015 1000 / 1000 Balance 2340 / 2340 1015 / 1015 1000 / 1000 Intake: IV 2100 / 2100 1015 / 1015 1000 / 1000 D5W/1/2NS + KCL 20 mEq Inj 1, 950 / 950 1000 / 1000 000 ML @ 100 mls/hr IV.CONT . Q10H [facility] Rx#:[id number] Ofirmev Inj 650 mg In 65 ml @ 65 / 65 400 mls/hr IV.SIG Q6H [facility] Rx#: [id number] KCl 20 mEq Premix Inj 20 meq In 100 / 100 100 ml @ 50 mls/hr IV.SIG ONCE ONE Rx#:[id number] NS Inj 1,000 ML @ Wide Open IV. 1999 SIG BOLUS [facility] Rx#:[id number] Oral 240 / 240 Other: Date of Last Bowel Movement 06/14/18 06/14/18 06/14/18 <Lisseth Caballero T - 06/16/18 10:24> Narrative: General: Well-developed, alert, and in no acute distress. Appears stated age HEENT: Atraumatic, PERRL, non-icteric sclera and no conjunctival injection, moist mucous membranes Neck: Supple, non-tender without masses or lymphadenopathy, trachea midline Cardiac: Regular rate and rhythm without murmurs or gallops Pulmonary: Non-labored breathing. Lungs clear to auscultation bilaterally with good air movement Abdomen: Normal bowel sounds, soft, moderate tenderness to palpation of the epigastric area without rebound or guarding. Extremities: No edema, 2+ pedal pulses, capillary refill less than 2 seconds <FedericoLisseth Lee T - 06/16/18 11:37> Assessment and Plan - Assessment (1) Intractable vomiting with nausea Code(s): R11.2 - Nausea with vomiting, unspecified Status: Acute (2) Acute hypokalemia Code(s): E87.6 - Hypokalemia Status: Acute (3) Abdominal pain, acute, epigastric Code(s): R10.13 - Epigastric pain Status: Acute (4) Hyperbilirubinemia Code(s): E80.6 - Other disorders of bilirubin metabolism Status: Acute <AlfredoDeric K - 06/16/18 12:28> (1) Intractable vomiting with nausea Code(s): R11.2 - Nausea with vomiting, unspecified Status: Acute (2) Acute hypokalemia Code(s): E87.6 - Hypokalemia Status: Acute (3) Abdominal pain, acute, epigastric Code(s): R10.13 - Epigastric pain Status: Acute (4) Hyperbilirubinemia Code(s): E80.6 - Other disorders of bilirubin metabolism Status: Acute <FedericoHunterLissethkayla Lee T - 06/16/18 11:25> - Assessment and Plan 28-year-old female with past medical history significant for frequent bouts of nausea and vomiting. Cyclic vomiting -previous GES negative, CT A/P this week negative. EGD 2013 showing gastritis, negative h pylori, already had cholecystectomy and no CBD dilation on CT -Will transition to full liquid diet, progress diet as tolerated -Start Protonix IV 40mg daily -GI cocktail (Maalox + viscous lidocaine) 15ml PO q6h -Reglan 5mg IV q6h PRN for N/V -Continue fluids NS + 20meq Kcl 100mls/hr until patient has adequate PO intake -Discussed with patient about outpatient options to try control or TCA to control cyclic vomiting Hypokalemia -Likely secondary to emesis -Potassium of 3.5 today -Potassium in fluids Hyperbilirubinemia -Not significantly different from her previous labs. -Liver enzymes and function normal -DDX includes hemolytic anemia and genetic disorders of bilirubin metabolism Fluids: 100cc/hr as above Electrolytes: monitor and replete as needed Nutrition: full liquid diet GI prophylaxis: Protonix VTE prophylaxis: SCDs, early ambulation Dispo: discharge this afternoon or tomorrow if stable <Lisseth Caballero - 06/16/18 11:37> - Attending Attestation The exam, history, and the medical decision-making described in the above note were completed with the assistance of the resident physician. I reviewed and agree with the findings presented. I attest that I had a [id number] encounter with the patient on the same day, and personally performed and documented my assessment and findings in the medical record. Feeling better today, had some relapse overnight she feels exacerbated by IV acetaminophen. but epigastric pain more than nausea. I assume it is more likely from her toradol and she is not on PPi only one time H2 clyde in ED. [facility] Cont reglan and ADAT hope to discharge today hypoK- resolved gastritis give one time dose of IV PPI and GI cocktail. If tolerates PO can d/c this pm with some PO reglan and PPI f/u [facility] <Deric Fuentes - 06/16/18 12:28> <Lisseth Caballero - Last Filed: 06/16/18 11:25> (1) Intractable vomiting with nausea Qualifiers: Vomiting type: unspecified Qualified Code(s): R11.2 - Nausea with vomiting, unspecified <Deric Fuentes - Last Filed: 06/16/18 12:28> (1) Intractable vomiting with nausea Qualifiers: Vomiting type: unspecified Qualified Code(s): R11.2 - Nausea with vomiting, unspecified <Lisseth Caballero - Last Filed: 06/16/18 11:25> (1) Intractable vomiting with nausea Qualifiers: Vomiting type: unspecified Qualified Code(s): R11.2 - Nausea with vomiting, unspecified <Deric Fuentes - Last Filed: 06/16/18 12:28> (1) Intractable vomiting with nausea Qualifiers: Vomiting type: unspecified Qualified Code(s): R11.2 - Nausea with vomiting, unspecified
[2018-06-16] MEDS ORDERED: Aluminum/Magnesium/Simethacone Susp 30 ML UDC PO PRN (11:00)
[2018-06-16] MEDS: Aluminum/Magnesium/Simethacone Susp 30 ML UDC PO SCH ×2 (12:16→17:55)
[2018-06-16] MEDS ORDERED: Naloxone Inj 0.4 MG/ML Vial IV.PUSH PRN (14:36)
[2018-06-16] MEDS ORDERED: LORazepam 1 MG Tablet PO PRN (14:37)
[2018-06-17] MEDS: Aluminum/Magnesium/Simethacone Susp 30 ML UDC PO SCH ×2 (00:53→07:21)
[2018-06-17] MEDS: KCL 20 mEq/D5W/NaCl 0.45% Inj 1,000 ML IV.CONT SCH ×2 (03:40→04:06)
[2018-06-17 07:30] LABS: Hematocrit 39.7 % (35.0-46.0); Hemoglobin 13.9 gm/dL (11.6-15.3); Mean Corpuscular HGB Conc 35.1 % (32.0-36.0); Mean Corpuscular Hemoglobin 31.2 pg (27.0-34.0); Platelet Count 321 th/mm3 (150-450); Red Blood Count 4.46 mil/mm3 (4.00-5.30); Red Cell Distribution Width 13.2 % (11.6-17.2); White Blood Count 7.6 th/mm3 (4.0-11.0)
[2018-06-17 07:55] LABS: Calcium 8.8 mg/dL (8.5-10.1); Carbon Dioxide 25.7 meq/L (21.0-32.0); Potassium 3.7 meq/L (3.5-5.1)
[2018-06-17] MEDS ORDERED: Pantoprazole Inj 40 MG Vial IV.PUSH SCH (09:00)
[2018-06-17] MEDS ORDERED: Morphine Inj 4 MG/ML Vial IV.PUSH ONE (09:15)
--- NOTE | 2018-06-17 10:46 | P.PNFP ---
Subjective Interval history: Patient continued to have abdominal pain overnight and was given IV Ativan this morning at 5 AM, but otherwise no other overnight events reported. Patient reports that increase in her symptoms began after her last dose of the GI cocktail. She was able to tolerate crackers, Ensure drink, popsicle, and some water last night as she was switched over to a regular diet. We will continue to assess if she is tolerating a regular diet today and whether she will experience any alleviation to her abdominal pain symptoms. She endorses having an episode of diarrhea this morning as well as 2 episodes of emesis, but denies episodes of dry heaving. We spoke to patient about possible GI consult and she was agreeable with this plan. <Lisseth Caballero T - 06/17/18 10:46> Results - Labs Result diagrams: 06/17/18 06:45 06/17/18 06:45 <Derci Fuentes - 06/17/18 13:22> Abnormal lab results 06/17/18 06/17/18 Range/Units 06:45 06:45 BUN 4 L (7-18) mg/dL Estimated GFR 83 L (>89) mL/min Lipase 57 L (73-393) U/L Short CBC 06/17/18 Range/Units 06:45 WBC 7.6 (4.0-11.0) th/mm3 Hgb 13.9 (11.6-15.3) gm/dL Hct 39.7 (35.0-46.0) % Plt Count 321 (150-450) th/mm3 [facility] 06/17/18 06:45 Sodium 138 Potassium 3.7 Chloride 106 Carbon Dioxide 25.7 BUN 4 L Creatinine 0.83 Calcium 8.8 <Deric Fuentes - 06/17/18 13:22> Abnormal lab results 06/17/18 Range/Units 06:45 BUN 4 L (7-18) mg/dL Estimated GFR 83 L (>89) mL/min Short CBC 06/17/18 Range/Units 06:45 WBC 7.6 (4.0-11.0) th/mm3 Hgb 13.9 (11.6-15.3) gm/dL Hct 39.7 (35.0-46.0) % Plt Count 321 (150-450) th/mm3 [facility] 06/17/18 06:45 Sodium 138 Potassium 3.7 Chloride 106 Carbon Dioxide 25.7 BUN 4 L Creatinine 0.83 Calcium 8.8 <Lisseth Caballero Lee T - 06/17/18 10:46> Physical Exam Vital signs: Vital Signs 06/16/18 16:19 06/16/18 19:41 06/16/18 20:00 Temperature 98.7 F 98.5 F Pulse Rate 73 74 69 Respiratory Rate 20 16 Blood Pressure 117/49 L 123/80 Pulse Oximetry 97 98 98 06/17/18 00:00 06/17/18 04:00 06/17/18 07:40 Temperature 98.6 F 98.2 F 98.5 F Pulse Rate 66 68 78 Respiratory Rate 16 18 16 Blood Pressure 138/72 161/104 H 169/95 H Pulse Oximetry 97 98 98 06/17/18 08:10 06/17/18 12:00 06/17/18 12:50 Temperature 97.9 F Pulse Rate 81 74 Respiratory Rate 18 Blood Pressure 175/100 H 146/88 H Pulse Oximetry 100 Intake & Output 06/16/18 06/17/18 06/17/18 18:59 06:59 18:59 Intake Total 1999 1000 / 1000 700 / 700 Balance 1999 1000 / 1000 700 / 700 Intake: IV 1999 1000 / 1000 700 / 700 D5W/1/2NS + KCL 20 mEq Inj 1, 1999 1000 / 1000 700 / 700 000 ML @ 100 mls/hr IV.CONT . Q10H [facility] Rx#:[id number] Other: Date of Last Bowel Movement 06/14/18 06/13/18 <Deric Fuentes K - 06/17/18 13:22> Vital Signs 06/16/18 12:03 06/16/18 16:19 06/16/18 19:41 Temperature 98.5 F 98.7 F 98.5 F Pulse Rate 80 73 74 Respiratory Rate 20 20 16 Blood Pressure 121/74 117/49 L 123/80 Pulse Oximetry 98 97 98 06/16/18 20:00 06/17/18 00:00 06/17/18 04:00 Temperature 98.6 F 98.2 F Pulse Rate 69 66 68 Respiratory Rate 16 18 Blood Pressure 138/72 161/104 H Pulse Oximetry 98 97 98 06/17/18 07:40 06/17/18 08:10 Temperature 98.5 F Pulse Rate 78 81 Respiratory Rate 16 Blood Pressure 169/95 H Pulse Oximetry 98 Intake & Output 06/16/18 06/17/18 06/17/18 18:59 06:59 18:59 Intake Total 1999 1000 / 999 Balance 1999 Intake: IV 1999 D5W/1/2NS + KCL 20 mEq Inj 1, 1999 000 ML @ 100 mls/hr IV.CONT . Q10H [facility] Rx#:[id number] Other: Date of Last Bowel Movement 06/14/18 06/13/18 <Lisseth Caballero 06/17/18 10:46> Narrative: General: Well-developed, alert, and in no acute distress. Appears stated age HEENT: Atraumatic, PERRL, non-icteric sclera and no conjunctival injection, moist mucous membranes Neck: Supple, non-tender without masses or lymphadenopathy, trachea midline Cardiac: Regular rate and rhythm without murmurs or gallops Pulmonary: Non-labored breathing. Lungs clear to auscultation bilaterally with good air movement Abdomen: Normal bowel sounds, soft, moderate tenderness to palpation of the epigastric area without rebound or guarding. Extremities: No edema, 2+ pedal pulses, capillary refill less than 2 seconds <Lisseth Caballero 06/17/18 10:46> - Constitutional moderate distress, cooperative <Lisseth Caballero 06/17/18 10:46> - Routine HEENT Exam Head: Present: normocephalic <Lisseth Caballero 06/17/18 10:46> ENT: Present: mucous membranes moist <Lisseth Caballero 06/17/18 10:46> - Routine Respiratory Exam Present: CTA bilaterally. Absent: accessory muscle use, rales, respiratory distress, rhonchi, stridor, wheezes, crackles <Lisseth Caballero 06/17/18 10: 46> - Routine Cardiovascular Exam Present: RRR, S1, S2. Absent: murmur, gallop, rubs <Lisseth Caballero 10:46> Comments: 2+ peripheral pulses <Lisseth Caballero 06/17/18 10:46> - Routine Abdominal Exam Present: soft, normoactive bowel sounds, tenderness (moderate epigastric pain upon palpation), guarding. Absent: distended, rebound <Lisseth Caballero - 08/23 10:46> - Routine Neurological Exam Present: alert, oriented X3 <Lisseth Caballero - 06/17/18 10:46> - Routine Psychiatric Exam Present: cooperative <Lisseth Caballero 06/17/18 10:46> Assessment and Plan - Assessment (1) Intractable vomiting with nausea Code(s): R11.2 - Nausea with vomiting, unspecified Status: Acute (2) Acute hypokalemia Code(s): E87.6 - Hypokalemia Status: Acute (3) Abdominal pain, acute, epigastric Code(s): R10.13 - Epigastric pain Status: Acute (4) Hyperbilirubinemia Code(s): E80.6 - Other disorders of bilirubin metabolism Status: Acute <Deric Fuentes K - 06/17/18 13:22> (1) Intractable vomiting with nausea Code(s): R11.2 - Nausea with vomiting, unspecified Status: Acute (2) Acute hypokalemia Code(s): E87.6 - Hypokalemia Status: Acute (3) Abdominal pain, acute, epigastric Code(s): R10.13 - Epigastric pain Status: Acute (4) Hyperbilirubinemia Code(s): E80.6 - Other disorders of bilirubin metabolism Status: Acute <Lsiseth Caballero - 06/17/18 11:55> - Assessment and Plan 28-year-old female with past medical history significant for frequent bouts of nausea and vomiting with significant GI workup. Cyclic vomiting - Previous work up: GES negative, CT A/P this week negative. EGD 2013 showing gastritis, negative h pylori, already had cholecystectomy and no CBD dilation on CT - Continue Protonix IV 40mg daily, - Continue Reglan 5mg IV q6h PRN for N/V and compazine 10mg IV q6h PRN - Discontinued GI cocktail -[place] and Ativan PRN for abdominal pain Hyperbilirubinemia -Not significantly different from her previous labs. -Liver enzymes and function normal -DDX includes hemolytic anemia and genetic disorders of bilirubin metabolism Fluids: Discontinue fluids Electrolytes: monitor and replete as needed Nutrition: Regular diet GI prophylaxis: Protonix VTE prophylaxis: SCDs, early ambulation Dispo: Discharge patient today with [facility], and PPI, patient to follow up with [facility] farhan PolancoShellyella Garcia, MR <Chito Caballerolatoya Lee T - 06/17/18 11:59> - Attending Attestation The exam, history, and the medical decision-making described in the above note were completed with the assistance of the resident physician. I reviewed and agree with the findings presented. I attest that I had a [id number] encounter with the patient on the same day, and personally performed and documented my assessment and findings in the medical record. in addition to PO intake discussed above she also was able to drink 1.5 cans of ensure without difficulty. She has had very limited episodes of small volume emesis but has largely tolerated PO very well. Clinically she appears very well hydrated and today she did not have any pain on her abdominal exam, it was soft and non distended as well. She is comfortable being discharged with anti emetics , and a PPI and she requests an ensure to take with her when she leaves. She understands that she may need to f/u with GI as an outpatient if she continues to have epigastric discomfort despite an adequate PPI trial. She is going to consider exploring hormonal contraceptive methods to see if they can help. <Deric Fuentes - 06/17/18 13:22> <FedericoLisseth Lee T - Last Filed: 06/17/18 11:55> (1) Intractable vomiting with nausea Qualifiers: Vomiting type: unspecified Qualified Code(s): R11.2 - Nausea with vomiting, unspecified <Deric Fuentes - Last Filed: 06/17/18 13:22> (1) Intractable vomiting with nausea Qualifiers: Vomiting type: unspecified Qualified Code(s): R11.2 - Nausea with vomiting, unspecified <Lisseth Caballero - Last Filed: 06/17/18 11:55> (1) Intractable vomiting with nausea Qualifiers: Vomiting type: unspecified Qualified Code(s): R11.2 - Nausea with vomiting, unspecified <Deric Fuentes K - Last Filed: 06/17/18 13:22> (1) Intractable vomiting with nausea Qualifiers: Vomiting type: unspecified Qualified Code(s): R11.2 - Nausea with vomiting, unspecified
--- NOTE | 2018-06-17 12:35 | P.DS ---
Date of admission: 06/15/18 09:19 Primary care physician: Herminia Aragon Brief History from admission: Patient is a 28-year-old female with a past medical history significant for frequent bouts of nausea, vomiting, and inability to tolerate p.o and a surgical history significant for cholecystectomy. She reports feeling in her usual state of health up until 3 days prior to admission. At that time she had sudden onset of nausea worsened with p.o. intake, bilious but nonbloody vomiting (at least 20 times since onset) and epigastric pain. She describes the pain as a twisting feeling that is a 10/10 at worst, 7/10 at present. She notes this pain typically stays in the epigastric area, however when it is increasingly severe and is difficult to determine its location. She has had mild headache, dizziness, lightheadedness, which she attributes to dehydration. She does not have any home medications and has found no alleviating factors. She tries smoking marijuana for relief, which does not help. She not not typically smoke MJ, only with her nausea. Yesterday she had diarrhea concurrent with her vomiting. She has had episodes similar to this 1 in the past. She states that they typically occur when she is on her period or shortly thereafter, however that is not always the case. Last time she was admitted to the hospital for this was during her previous , greater than 1 year ago. This is her first episode since that time. She has seen a metal sprayer machined parts in the past for this , without any definitive diagnosis. She does report a prior endoscopy that showed H. pylori, but she is unaware of any other findings. She was seen in the emergency department yesterday for the same problem. At that time she had leukocytosis, a CT of the abdomen and pelvis which showed no acute pathology, antiemetics, and fluids. Her symptoms improved with fluids and medication, she returned home and slept in the night, her symptoms returned in the morning. Today in the ED her symptoms had mild improvement with 2 L of normal saline, IV Zofran, IV Reglan, and IV morphine She denies fever, chills, sweats, chest pain, palpitations DS: Diagnosis - Discharge Diagnosis (1) Intractable vomiting with nausea Status: Acute (2) Acute hypokalemia Status: Acute (3) Abdominal pain, acute, epigastric Status: Acute (4) Hyperbilirubinemia Status: Acute DS: Medications - Discharge Medications Prescriptions: metoclopramide HCl [Reglan] 10 mg PO Q6H #30 tab ondansetron [Zofran ODT] 4 mg PO Q6-8H PRN #30 tab PRN Reason: nausea/vomiting pantoprazole [Protonix] 40 mg PO BID #90 tab DS: Summary Hospital Course: Patient was admitted with significant nausea, vomiting, abdominal pain, and inability to tolerate PO as well as mild hypokalemia. She was given fluids with potassium as well as a variety of anti-nausea medications including zofran, compazine and reglan with incomplete effectiveness. No imaging was performed, however a CT the day before admission had shown no acute pathology. Lipase levels were normal. She did have a mild total bilirubin elevation without other signs of liver disease. On chart review this was found to be chronic.0 Her pain was treated and she began to tolerate an adequate diet with a stable electrolytes status. She was discharged home with Zofran, Reglan, Protonix, and dicyclomine as well as instructions to follow up with [facility] as an outpatient. - Time Spent with Patient Total time spent providing and/or coordinating discharge services: Less than 30 minutes - Quality: VTE Deep Vein Thrombosis/Pulmonary Embolism Present on Admission: No Exam Vital signs: Vital Signs 06/16/18 16:19 06/16/18 19:41 06/16/18 20:00 Temperature 98.7 F 98.5 F Pulse Rate 73 74 69 Respiratory Rate 20 16 Blood Pressure 117/49 L 123/80 Pulse Oximetry 97 98 98 06/17/18 00:00 06/17/18 04:00 06/17/18 07:40 Temperature 98.6 F 98.2 F 98.5 F Pulse Rate 66 68 78 Respiratory Rate 16 18 16 Blood Pressure 138/72 161/104 H 169/95 H Pulse Oximetry 97 98 98 06/17/18 08:10 Temperature Pulse Rate 81 Respiratory Rate Blood Pressure Pulse Oximetry Intake & Output 06/16/18 06/17/18 06/17/18 18:59 06:59 18:59 Intake Total 1999 1000 / 1000 700 / 700 Balance 1999 1000 / 1000 700 / 700 Intake: IV 1999 / 1000 700 / 700 D5W/1/2NS + KCL 20 mEq Inj 1, 2000 / 2000 1000 / 1000 700 / 700 000 ML @ 100 mls/hr IV.CONT . Q10H [facility] Rx#:[id number] Other: Date of Last Bowel Movement 06/14/18 06/13/18 Narrative: General: Well-developed, alert, and in no acute distress. Appears stated age HEENT: Atraumatic, PERRL, non-icteric sclera and no conjunctival injection, moist mucous membranes Neck: Supple, non-tender without masses or lymphadenopathy, trachea midline Cardiac: Regular rate and rhythm without murmurs or gallops Pulmonary: Non-labored breathing. Lungs clear to auscultation bilaterally with good air movement Abdomen: Normal bowel sounds, soft, moderate tenderness to palpation of the epigastric area without rebound or guarding. Extremities: No edema, 2+ pedal pulses, capillary refill less than 2 seconds Results Procedures completed during hospitalization: none Labs on day of discharge: Labs from last 24 hours 06/17/18 06/17/18 06/17/18 06:45 06:45 06:45 WBC 7.6 RBC 4.46 Hgb 13.9 Hct 39.7 MCV 89.0 MCH 31.2 MCHC 35.1 RDW 13.2 Plt Count 321 MPV 8.0 Sodium 138 Potassium 3.7 Chloride 106 Carbon Dioxide 25.7 Anion Gap 6 BUN 4 L Creatinine 0.83 Estimated GFR 83 L Random Glucose 106 Calcium 8.8 Lipase 57 L Discharge Plan - Discharge Disposition Patient Disposition: 01 Discharge Home - Discharge Condition Condition: Stable - Discharge Order Discharge Orders: Discharge Order (Routine); Ordered 06/17/18 Ordered By: Lisseth Caballero - Physicians Team Primary Care Provider: Herminia Aragon, Attending Provider: Deric Fuentes
== END 2018-06-17 13:47 | disposition home or self-care (01) ==
LOC: NEDA 06:46 → NEPC 06:46 → NEPHCDU 10:47
PROVIDERS: ADMIT Family Medicine; ATTEND Family Medicine
DX: E87.6 Hypokalemia; F12.90 Cannabis use, unspecified, uncomplicated; Z98.891 History of uterine scar from previous surgery; Z90.49 Acquired absence of other specified parts of digestive tract; R10.13 Epigastric pain; R11.2 Nausea with vomiting, unspecified; E80.6 Other disorders of bilirubin metabolism